=== PATIENT | male | born 1975 | race Caucasian/White ===

== ENCOUNTER 2017-01-05 20:35 | Emergency (ER) | payer MEDICAID ==
[~2017-01-05] VITALS: Ht 172.7 cm; Wt 69.1 kg
[~2017-01-05 20:35] MED LIST: GABA300C10 PO; SERT100T PO
[2017-01-05] MEDS ORDERED: LIDOCAINE 1%, 20ML ONE (21:58)
[2017-01-05] MEDS ORDERED: LIDOCAINE 1%, 20ML SQ ONE (22:00)
[2017-01-05 23:06] VITALS: BP 114/70
== END 2017-01-05 23:08 | disposition home or self-care (01) ==
LOC: ED 23:00
DX: L02.413 Cutaneous abscess of right upper limb (principal); S90.421A Blister (nonthermal), right great toe, initial encounter; B35.3 Tinea pedis; F19.10 Other psychoactive substance abuse, uncomplicated; X58.XXXA Exposure to other specified factors, initial encounter; Y93.89 Activity, other specified; Y99.8 Other external cause status; Y92.89 Other specified places as the place of occurrence of the external cause
CPT/HCPCS: 10060

== ENCOUNTER 2017-01-07 19:54 | Emergency (ER) | payer MEDICAID ==
[~2017-01-07] VITALS: Ht 172.7 cm; Wt 71.3 kg
[2017-01-07 19:55] VITALS: BP 120/74
[2017-01-07] MEDS ORDERED: CEFAZOLIN 1,000 MG ONE (20:19)
[2017-01-07] MEDS ORDERED: DIPH,PERTUSS(ACELL),TET VAC/PF 0.5 ML IM-VACC ONE ×2 (20:20→20:30)
[2017-01-07] MEDS ORDERED: LIDOCAINE 1%, 10ML INFIL ONE (20:30)
[2017-01-07] MEDS ORDERED: CEFAZOLIN 1,000 MG IM ONE (20:30)
== END 2017-01-07 21:19 | disposition home or self-care (01) ==
LOC: ED 20:00
DX: L02.413 Cutaneous abscess of right upper limb (principal)
CPT/HCPCS: 90471; 90715; 96372; 99284; J0690

== ENCOUNTER 2019-01-08 14:02 | Observation (INO) | payer MEDICAID ==
[~2019-01-08] VITALS: Ht 172.7 cm; Wt 80.0 kg
[2019-01-09 08:21] VITALS: BP 102/74
== END 2019-01-09 12:30 ==
LOC: ED 16:52 → EDIP 01-09 01:38 → INTOOBSV 01-09 01:38 → 2N 01-09 09:50
PROVIDERS: ADMIT Internal Medicine; ATTEND Internal Medicine
DX: R45.851 Suicidal ideations (principal); N17.9 Acute kidney failure, unspecified; M54.12 Radiculopathy, cervical region; F41.8 Other specified anxiety disorders; F19.10 Other psychoactive substance abuse, uncomplicated; F17.210 Nicotine dependence, cigarettes, uncomplicated; Z88.8 Allergy status to other drugs, medicaments and biological substances
CPT/HCPCS: 36415; 74022; 80048; 80053; 80307; 81001; 82550; 83690; 85025; 87086; 93005; 96372; 99285; G0378; J3486; J7030; 96360; 96361

== ENCOUNTER 2019-04-23 16:05 | Emergency (ER) | payer MEDICAID ==
[~2019-04-23] VITALS: Ht 172.7 cm; Wt 80.6 kg
[~2019-04-23 16:05] MED LIST changes: +CYCL-259 PO; +OXYC10SY PO; +QUET200T4 PO; +SERT25TA3 PO
[2019-04-23 16:45] LABS: BASOPHILS # (AUTO) 0.02 x10^3/uL (0-0.1); BASOPHILS % (AUTO) 0 % (0-1); EOSINOPHILS # (AUTO) 0.22 x10^3/uL (0-0.4); EOSINOPHILS % (AUTO) 3 % (1-7); LYMPHOCYTES # (AUTO) 1.28 x10^3/uL (1-3.4); LYMPHOCYTES % (AUTO) 18 % (22-44); MD NO; MEAN CORPUSCULAR HEMOGLOBIN 31.6 pg (27.5-34.5); MEAN CORPUSCULAR HGB CONC 33.9 g/dL (33.2-36.2); MEAN CORPUSCULAR VOLUME 93.3 fL (81-97); MEAN PLATELET VOLUME 6.8 fL (7.4-10.4); MONOCYTES % (AUTO) 7 % (2-9); NEUTROPHILS # (AUTO) 5.14 x10^3/uL (1.8-6.8); NEUTROPHILS % (AUTO) 72 % (42-75); PLATELET COUNT 281 x10^3/uL (130-400); RED BLOOD COUNT 4.98 x10^6/uL (4.38-5.82); RED CELL DISTRIBUTION WIDTH 13.5 % (9.4-14.8)
[2019-04-23 16:55] LABS: ALBUMIN 3.3 g/dL (3.4-5.0); ANION GAP 8 mmol/L (5-15); CALCIUM 8.9 mg/dL (8.5-10.1); CHLORIDE 107 mmol/L (98-107); CREATININE 1.05 mg/dL (0.7-1.3); SALICYLATE LEVEL < 1.7 mg/dL (2.8-20.0)
--- NOTE | 2019-04-23 16:56 | NUR ---
PT SITTING IN CHAIR ON WALL, NAD OBSERVED, NEAR RN STATION
--- NOTE | 2019-04-23 17:17 | NUR ---
FROM WALL TO ROOM AT THIS TIME
--- NOTE | 2019-04-23 17:27 | NUR ---
PT UNDRESSED COMPLETELY, 3 BAGS OF BELONGINGS LABLED AND PLACED IN LOCKER. PT CALM AND COOPERATIVE WITH STAFF REQUESTS. BLANKETS PROVIDED FOR COMFORT. URINE COLLECTED AND WALKED DOWN TO LAB. LABS COLLECTED WHILE PT WAS SITTING ON WALL. PT REQUESTING FOOD. DIET TRAY TO BE ORDERED. AWAITING MD ASSESSMENT AND FURTHER ORDERS AT THIS TIME
--- NOTE | 2019-04-23 17:45 | NUR ---
THIS IS A 43YO MALE THAT COMES IN W/ C/O SI WANTING TO OVERDOSE. PT REPORTS NOT TAKING PSYCH MEDS SINCE WEDNESDAY WHEN HE WAS AT [place] FOR [place]. PT REPORTS TWO WEEKS AGO ATTEMPTING TO OVERDOSE AND BEING BROUGHT TO HOSPITAL AND TRANSFERED TO [place] FOR A WEEK AND A HALF. JUANCHO PT STATES HE WAS ON THE WAY TO GET THINGS TO OVER DOSE AND RAN INTO A FRIEND THAT TOLD HIM TO GO TO THE HOSPITAL. PT KEEPS STATING "I'M NOT SAFE OUT THERE." AT THIS TIME PT RESTING ON [employer] WATCHING TV CALL LIGHT WITHIN REACH.
[2019-04-23 17:51] LABS: AMPHETAMINE SCREEN, URINE Negative (Negative); BARBITURATE SCREEN, URINE Negative (Negative); BENZODIAZEPINE SCREEN, URINE Negative (Negative); CANNABINOID SCREEN, URINE Negative (Negative); COCAINE SCREEN, URINE Negative (Negative); METHADONE SCREEN, URINE Negative (Negative); OPIATE SCREEN, URINE Negative (Negative)
--- NOTE | 2019-04-23 18:05 | NUR ---
THROUGHPUT: TELEPSYCH PGD.
--- NOTE | 2019-04-23 18:21 | NUR ---
PT RESTING ON [employer]. CALL LIGHT WITHIN REACH.
--- NOTE | 2019-04-23 18:40 | NUR ---
F/U CALL PLACED TO DIETARY TON DELAY IN RECEIVING TRAY, STATES WILL SEND ONE NOW
--- NOTE | 2019-04-23 18:55 | NUR ---
DIET TRAY DELIVERED TO PT, PT CURRENTLY EATING IN ROOM NOW. NADN. ALL NEEDS MET AT TH TIME
--- NOTE | 2019-04-23 19:26 | NUR ---
PT SLEEPING IN BED, NADN. FINISHED DIET TRAY. STILL AWAITING TELEPSYCH FOR DISPO. FLUIDS AT BEDSIDE. SITTER IN CONTI FOR CONTINUOUS MONITORING.
--- NOTE | 2019-04-23 19:56 | NUR ---
PT RESTING ON GURNEY EYES CLOSED. CALL LIGHT WITHIN REACH.
--- NOTE | 2019-04-23 20:11 | NUR ---
PT RESTING ON [facility]. SITTER IN HALLWAY FOR MONITORING AND SAFETY.
--- NOTE | 2019-04-23 20:50 | NUR ---
TELEPSYCH CESAR IN ROOM AT THIS TIME, AWAITING CONSULT AND DISPO
--- NOTE | 2019-04-23 21:32 | NUR ---
REPORT GIVEN TO SOC.
--- NOTE | 2019-04-23 22:24 | NUR ---
PT PLACED ON HOLD PER SOC. PT PROVIDED WITH SNACKS PER REQUEST SITTER REMAINS IN HALLWAY FOR SAFETY AND MONITORING
--- NOTE | 2019-04-23 22:30 | NUR ---
REPORT GIVEN TO DASH LEONE.
--- NOTE | 2019-04-23 22:41 | NUR ---
RECIEVED REPORT FROM LORI. ASSUMED CARE OF PT.
--- NOTE | 2019-04-23 22:49 | NUR ---
PT STATES THAT HE IS NOT SAFE TO LEAVE THE HOSPITAL, BUT HE CONTRACTS FOR SAFETY WHILE HE IS HERE. HE REPORTS THAT HE HAS STRUGGLED WITH DEPRESSION AND SI FOR YEARS. PT ALSO REPORTS THAT HE LEFT [facility] WITH NO MEDS.
--- NOTE | 2019-04-24 01:30 | NUR ---
PT SLEEPING RESP EVEN AND UNLABORED. SITTER IN CONTI
--- NOTE | 2019-04-24 02:10 | NUR ---
Note ayaka in EDM - 04/24/19 at 0346 by AMARI REVIEWED DISCHARGE INSTRUCTIONS WITH PT AND GF. GAVE PT LOST AND FOUND CLOTHING AND SHOES. PT IS A&OX4, V/S WNL, AFEBRILE. PT ESCORTED TO DISCHARGE.
--- NOTE | 2019-04-24 03:44 | NUR ---
PT RESTING. WOKE UP AND THEN RETURNED TO SLEEP. SITTER IN CONTI.
--- NOTE | 2019-04-24 05:57 | NUR ---
PT SLEEPING. SITTER IN CONTI
--- NOTE | 2019-04-24 07:08 | NUR ---
Received report from SULEMA Jett. Assumed care of pt.
--- NOTE | 2019-04-24 07:50 | NUR ---
PACKET FAXED TO [facility], [facility] AND [facility]
[2019-04-24 08:11] VITALS: BP 109/64
--- NOTE | 2019-04-24 08:27 | NUR ---
Pt ate breakfast and now resting comfortably. No complaints. Sitter in place.
--- NOTE | 2019-04-24 08:36 | NUR ---
Nurse to nurse report given to [facility].
--- NOTE | 2019-04-24 09:30 | NUR ---
Pt sleeping, quiet and comfortable. No complaints. Sitter in place.
--- NOTE | 2019-04-24 10:30 | NUR ---
Pt sleeping, not in distress. No complaints. Sitter in place.
--- NOTE | 2019-04-24 11:28 | NUR ---
Pt sleeping quietly in bed. No distress. Awaiting transfer to [facility]. No complaints, sitter outside door.
--- NOTE | 2019-04-24 12:18 | NUR ---
Pt ate lunch and is now resting comfortably in bed. Sitter by the door.
--- NOTE | 2019-04-24 13:14 | NUR ---
Pt was discharged to [facility] via [facility] for pt's next level of care. All belongings returned to pt. Pt was escorted out without incident.
== END 2019-04-24 13:06 ==
LOC: ED 18:10
DX: R45.851 Suicidal ideations (principal); F41.9 Anxiety disorder, unspecified; F31.9 Bipolar disorder, unspecified
CPT/HCPCS: 36415; 80048; 80307; 82040; 85025; 99285

== ENCOUNTER 2019-06-24 19:30 | Emergency (ER) | payer BC, MEDICAID ==
[~2019-06-24] VITALS: Ht 172.7 cm; Wt 75.0 kg
--- NOTE | 2019-06-24 20:04 | NUR ---
PT AWARE A UA IS NEEDED. PT DECLINING TO PROVIDE SAMPLE AT THIS TIME.
[2019-06-24] MEDS ORDERED: VRAYLAR PO (20:13)
[2019-06-24 20:17] LABS: BASOPHILS # (AUTO) 0.05 x10^3/uL (0-0.1); BASOPHILS % (AUTO) 1 % (0-1); EOSINOPHILS # (AUTO) 0.09 x10^3/uL (0-0.4); EOSINOPHILS % (AUTO) 1 % (1-7); LYMPHOCYTES # (AUTO) 1.12 x10^3/uL (1-3.4); LYMPHOCYTES % (AUTO) 12 % (22-44); MD NO; MEAN CORPUSCULAR HEMOGLOBIN 31.8 pg (27.5-34.5); MEAN CORPUSCULAR HGB CONC 33.9 g/dL (33.2-36.2); MEAN CORPUSCULAR VOLUME 93.7 fL (81-97); MEAN PLATELET VOLUME 7.2 fL (7.4-10.4); MONOCYTES # (AUTO) 0.73 x10^3/uL (0.2-0.8); MONOCYTES % (AUTO) 8 % (2-9); NEUTROPHILS # (AUTO) 7.27 x10^3/uL (1.8-6.8); NEUTROPHILS % (AUTO) 79 % (42-75); PLATELET COUNT 248 x10^3/uL (130-400); RED BLOOD COUNT 5.04 x10^6/uL (4.38-5.82); RED CELL DISTRIBUTION WIDTH 14.1 % (9.4-14.8)
[2019-06-24 20:25] LABS: ALBUMIN 3.2 g/dL (3.4-5.0); ANION GAP 5 mmol/L (5-15); CALCIUM 8.9 mg/dL (8.5-10.1); CHLORIDE 106 mmol/L (98-107); CREATININE 0.99 mg/dL (0.7-1.3); SALICYLATE LEVEL 1.8 mg/dL (2.8-20.0)
--- NOTE | 2019-06-24 20:26 | NUR ---
PT PROVIDED WITH BLANKET PER REQUEST.
--- NOTE | 2019-06-24 21:16 | NUR ---
3E RN AT BEDSIDE ASSESSING PT
--- NOTE | 2019-06-24 21:22 | NUR ---
UA OBTAINED AND TUBED TO LAB
--- NOTE | 2019-06-24 21:23 | NUR ---
3E RN HAS FINISHED HER ASSESSMENT. SHE WILL SPEAK WITH HER PHYSICIAN AND LET US KNOW ABOUT ADMISSION OR DENIAL.
--- NOTE | 2019-06-24 21:44 | NUR ---
3E PSYCHIATRIST IS DECLINING THE PT AT THIS TIME AND REQUESTS WE SEND REFERRAL PACKET TO OTHER FACILITIES. THEY WILL HOWEVER RECONSIDER IF PT IS DECLINED BY OTHER FACILITES.
--- NOTE | 2019-06-24 21:45 | NUR ---
PT WAS DECLINED BY VERA MARCUS FROM [facility] CONVERSATION WITH THEIR STAFF
[2019-06-24 22:21] LABS: AMPHETAMINE SCREEN, URINE Negative (Negative); BARBITURATE SCREEN, URINE Negative (Negative); BENZODIAZEPINE SCREEN, URINE Positive (Negative); CANNABINOID SCREEN, URINE Positive (Negative); COCAINE SCREEN, URINE Negative (Negative); METHADONE SCREEN, URINE Negative (Negative); OPIATE SCREEN, URINE Negative (Negative)
--- NOTE | 2019-06-24 22:36 | NUR ---
TP RN: PT DENIED BY [facility].
--- NOTE | 2019-06-24 23:00 | NUR ---
TP RN: PACKET FAXED TO [facility], [place]. PT DENIED BY [facility].
--- NOTE | 2019-06-24 23:16 | NUR ---
[facility] CALLED BACK AND STATES THEY ARE UNABLE TO CONFIRM [employer] INSURANCE. OUR REG WAS CALLED AND THEY WILL WORK ON CONFIRMING HE PTS INSURANCE.
--- NOTE | 2019-06-24 23:23 | NUR ---
REGISTRATION WAS ABLE TO UPDATE PTS INSURANCE SUCCESSFULLY. UPDATED INFO FAXED TO [facility].
--- NOTE | 2019-06-24 23:45 | NUR ---
TP RN: PT DECLINED BY [facility]
--- NOTE | 2019-06-24 23:52 | NUR ---
DAVID RN: SPOKE WITH SULEMA STOCKTON ON TO TAKE PATIENT.
[2019-06-25 00:54] VITALS: BP 129/79
--- NOTE | 2019-06-25 00:55 | NUR ---
REPORT CALLED TO 3E SULEMA CALVO
[2019-06-25 10:22] LABS: MICROSCOPIC NOT IND
[2019-06-25 10:27] LABS: CULTURE INDICATED? NO
== END 2019-06-25 01:01 | disposition other institution (70) ==
LOC: MERGE 19:30 → ED 20:55
DX: R45.851 Suicidal ideations (principal); F17.200 Nicotine dependence, unspecified, uncomplicated; F31.9 Bipolar disorder, unspecified
CPT/HCPCS: 36415; 80048; 80307; 81003; 82040; 85025; 99284

== ENCOUNTER 2019-06-25 00:42 | Inpatient (IN) | payer MEDICAID ==
[~2019-06-25] VITALS: Ht 172.7 cm; Wt 78.5 kg
[~2019-06-25 00:42] MED LIST changes: +VRAYLAR PO
[2019-06-25] MEDS ORDERED: BISACODYL 10 MG SUPP PR PRN (01:30)
[2019-06-25] MEDS ORDERED: DOCUSATE 100 MG CAPSULE PO PRN (01:30)
[2019-06-25] MEDS ORDERED: ACETAMINOPHEN 325 MG TABLET PO PRN (01:30)
[2019-06-25] MEDS ORDERED: ONDANSETRON ODT 4 MG PO PRN (01:30)
[2019-06-25] MEDS ORDERED: POLYETHYLENE GLYCOL 17 GM PACKET PO PRN (01:30)
[2019-06-25 01:44] VITALS: BP 126/86
[2019-06-25 07:06] LABS: ALBUMIN 3.1 g/dL (3.4-5.0); ANION GAP 4 mmol/L (5-15); CALCIUM 8.9 mg/dL (8.5-10.1); CHLORIDE 108 mmol/L (98-107)
[2019-06-25 07:15] VITALS: BP 104/73
[2019-06-25 07:32] LABS: ALANINE AMINOTRANSFERASE 32 U/L (12-78); ALKALINE PHOSPHATASE 51 U/L (45-117); BILIRUBIN,TOTAL 0.2 mg/dL (0.2-1.0); CHOLESTEROL, TOTAL 140 mg/dL (140-239); CREATININE 0.89 mg/dL (0.7-1.3); FREE T4 (FREE THYROXINE) 0.87 ng/dL (0.76-1.46); HDL CHOL % 33 % (26-37); HDL CHOLESTEROL (DIRECT) 46 mg/dL (40-60); LDL CHOLESTEROL,CALCULATED 69 mg/dL (54-169); LDL/HDL RATIO 1.5 (0.5-3.0); TRIGLYCERIDES 126 mg/dL (50-200); VLDL CHOLESTEROL 25 mg/dL (0-25)
[2019-06-25] MEDS: NICOTINE 21 MG/24 HR PATCH.TD24 TD SCH (08:23)
[2019-06-25] MEDS ORDERED: HYDROmorphone 2MG TABLET PO PRN (09:30)
[2019-06-25 13:46] LABS: MICROSCOPIC AUTO
[2019-06-25 13:47] LABS: CULTURE INDICATED? NO
[2019-06-25] MEDS ORDERED: LIDODERM 5% PATCH TD ONE (14:00)
[2019-06-25] MEDS: ACETAMINOPHEN 325 MG TABLET PO SCH ×2 (14:08→20:02)
[2019-06-25] MEDS ORDERED: GABAPENTIN 400 MG CAPSULE PO SCH (16:00)
[2019-06-25 19:43] VITALS: BP 131/88
[2019-06-25] MEDS: TRAZODONE 100MG TABLET PO SCH (20:16)
[2019-06-26] MEDS: ACETAMINOPHEN 325 MG TABLET PO SCH ×4 (01:30→20:32)
[2019-06-26 07:26] VITALS: BP 116/78
[2019-06-26] MEDS: NICOTINE 21 MG/24 HR PATCH.TD24 TD SCH (08:13)
[2019-06-26] MEDS: IBUPROFEN 200 MG TABLET PO PRN ×3 (08:13→20:33)
[2019-06-26 19:52] VITALS: BP 106/69
[2019-06-26] MEDS: TRAZODONE 100MG TABLET PO SCH (20:32)
[2019-06-27] MEDS: ACETAMINOPHEN 325 MG TABLET PO SCH ×4 (01:30→19:45)
[2019-06-27 07:35] VITALS: BP 102/65
[2019-06-27] MEDS: NICOTINE 21 MG/24 HR PATCH.TD24 TD SCH (08:13)
[2019-06-27] MEDS: IBUPROFEN 200 MG TABLET PO PRN (11:27)
[2019-06-27 19:15] VITALS: BP 117/77
[2019-06-27] MEDS: TRAZODONE 100MG TABLET PO SCH (19:44)
[2019-06-28] MEDS: ACETAMINOPHEN 325 MG TABLET PO SCH ×4 (01:30→19:50)
[2019-06-28 07:02] VITALS: BP 122/80
[2019-06-28] MEDS: NICOTINE 21 MG/24 HR PATCH.TD24 TD SCH (08:07)
[2019-06-28] MEDS: IBUPROFEN 200 MG TABLET PO PRN ×2 (08:19→17:41)
[2019-06-28] MEDS ORDERED: VRAYLAR PO (17:12)
[2019-06-28] MEDS ORDERED: TRAZ-137 PO (17:12)
[2019-06-28] MEDS ORDERED: NICO-487 TD (17:12)
[2019-06-28 19:15] VITALS: BP 117/72
[2019-06-28] MEDS: TRAZODONE 100MG TABLET PO SCH (19:50)
[2019-06-29] MEDS: ACETAMINOPHEN 325 MG TABLET PO SCH ×2 (01:30→07:35)
[2019-06-29 07:40] VITALS: BP 105/71
== END 2019-06-29 07:40 | disposition home or self-care (01) | DRG 885 ==
LOC: 3E 01:04
PROVIDERS: ADMIT Psychiatry & Neurology Psychosomatic Medicine; ATTEND Psychiatry & Neurology Psychosomatic Medicine
DX: F31.30 Bipolar disorder, current episode depressed, mild or moderate severity, unspecified (principal); R45.851 Suicidal ideations; F15.20 Other stimulant dependence, uncomplicated; F10.20 Alcohol dependence, uncomplicated; F43.10 Post-traumatic stress disorder, unspecified; G47.00 Insomnia, unspecified; F19.10 Other psychoactive substance abuse, uncomplicated; G89.29 Other chronic pain; Z72.0 Tobacco use; Z79.899 Other long term (current) drug therapy; Z80.3 Family history of malignant neoplasm of breast; Z80.7 Family history of other malignant neoplasms of lymphoid, hematopoietic and related tissues; Z80.8 Family history of malignant neoplasm of other organs or systems; Z91.5 Personal history of self-harm; Z71.6 Tobacco abuse counseling
CPT/HCPCS: 36415; 71045; 80053; 80061; 81001; 82607; 84439; 84443; 93005

== ENCOUNTER 2019-11-14 16:27 | Inpatient (IN) | payer MEDICAID ==
[~2019-11-14] VITALS: Ht 172.7 cm; Wt 77.3 kg
[~2019-11-14 16:27] MED LIST changes: +HYDR-3240 PO; +IBUP-1222 PO; +LACT1CAP35 PO; +LORA-446 PO; +NICO-487 TD; +NONE PER PT; +TRAZ-175 PO; +VANC1PLA9 IVPB
--- NOTE | 2019-11-14 16:56 | NUR ---
PT STATED "I LEFT A SNF A FEW DAYS AGO. 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 I LEFT [facility] BECAUSE I HAD SOME THINGS I NEEDED TO TAKE CARE OF." PT ALSO ADMITS TO USING METH A FEW DAYS AGO. PT DENIES FEVERS OR ANY OTHER SYMPTOMS.
[2019-11-14] MEDS ORDERED: VANCOMYCIN 1,900 MG in SODIUM CHLORIDE 0.9% 250 ML IV ONE (17:30)
[2019-11-14] MEDS ORDERED: VANCOMYCIN PER PHARMACY MC ONE (17:30)
[2019-11-14 17:36] LABS: BASOPHILS # (AUTO) 0.05 x10^3/uL (0-0.1); BASOPHILS % (AUTO) 1 % (0-1); EOSINOPHILS # (AUTO) 0.32 x10^3/uL (0-0.4); EOSINOPHILS % (AUTO) 7 % (1-7); LYMPHOCYTES # (AUTO) 1.26 x10^3/uL (1-3.4); LYMPHOCYTES % (AUTO) 26 % (22-44); MD NO; MEAN CORPUSCULAR HEMOGLOBIN 31.6 pg (27.5-34.5); MEAN CORPUSCULAR HGB CONC 34.2 g/dL (33.2-36.2); MEAN CORPUSCULAR VOLUME 92.4 fL (81-97); MEAN PLATELET VOLUME 7.1 fL (7.4-10.4); MONOCYTES # (AUTO) 0.42 x10^3/uL (0.2-0.8); MONOCYTES % (AUTO) 9 % (2-9); NEUTROPHILS # (AUTO) 2.87 x10^3/uL (1.8-6.8); NEUTROPHILS % (AUTO) 59 % (42-75); PLATELET COUNT 352 x10^3/uL (130-400); RED CELL DISTRIBUTION WIDTH 14.3 % (9.4-14.8)
[2019-11-14 17:46] LABS: ANION GAP 3 mmol/L (5-15); CALCIUM 8.7 mg/dL (8.5-10.1); CHLORIDE 109 mmol/L (98-107); CREATININE 0.97 mg/dL (0.7-1.3)
[2019-11-14 17:47] LABS: ALANINE AMINOTRANSFERASE 26 U/L (12-78); ALBUMIN 3.3 g/dL (3.4-5.0)
[2019-11-14 17:49] LABS: ALKALINE PHOSPHATASE 65 U/L (45-117); BILIRUBIN,TOTAL 0.2 mg/dL (0.2-1.0); TOTAL PROTEIN 7.4 g/dL (6.4-8.2)
--- NOTE | 2019-11-14 18:03 | NUR ---
PT RESTING IN [facility]. IV ABX INFUSING
[2019-11-14] MEDS ORDERED: LORazepam 1MG TABLET PO PRN (19:30)
[2019-11-14] MEDS ORDERED: ACETAMINOPHEN 325 MG TABLET PO PRN (19:30)
[2019-11-14] MEDS ORDERED: BISACODYL 10 MG SUPP PR PRN (19:30)
[2019-11-14] MEDS ORDERED: ONDANSETRON ODT 4 MG PO PRN (19:30)
[2019-11-14] MEDS ORDERED: POLYETHYLENE GLYCOL 17 GM PACKET PO PRN (19:30)
[2019-11-14] MEDS ORDERED: IBUPROFEN 600 MG TABLET PO PRN (19:30)
[2019-11-14] MEDS: HEPARIN 5,000 UNITS/ML, 1ML SQ SCH (19:30)
--- NOTE | 2019-11-14 20:08 | NUR ---
PT RESTING IN [facility]. CATRACHITA SHELDON.
[2019-11-14] MEDS: NICOTINE 21 MG/24 HR PATCH.TD24 TD SCH (20:45)
[2019-11-14] MEDS ORDERED: DIPHENHYDRAMINE 50 MG/ML, 1ML ONE (20:50)
[2019-11-14] MEDS ORDERED: LORazepam 1MG TABLET ONE (20:52)
[2019-11-14] MEDS ORDERED: DIPHENHYDRAMINE 50 MG/ML, 1ML IVPush ONE (21:00)
--- NOTE | 2019-11-14 21:32 | NUR ---
PT BECAME INCREASINGLY AGITATED. WAS SWEARING AND THROWING THINGS AROUND THE ROOM. PT WAS MEDICATED PER MAR.
[2019-11-14] MEDS ORDERED: METHOCARBAMOL 500 MG TABLET ONE (21:46)
[2019-11-14] MEDS: METHOCARBAMOL 500 MG TABLET PO PRN (21:49)
[2019-11-14] MEDS: LACTOBACILLUS CHEW TABLET PO SCH (21:50)
[2019-11-14] MEDS: HYDROcodone/APAP 5/325 TABLET PO PRN (21:50)
[2019-11-14] MEDS ORDERED: PHARMACOKINETIC CONSULTATION MC ONE (22:00)
[2019-11-14] MEDS ORDERED: PHARMACOKINETIC MONITORING MC PRN (22:00)
[2019-11-14] MEDS ORDERED: VANCOMYCIN PER PHARMACY MC PRN (22:00)
[2019-11-14] MEDS: SODIUM CHLORIDE FLUSH 10ML SYR IVF SCH (22:25)
[2019-11-14 22:27] VITALS: BP 90/52
[2019-11-15 02:22] VITALS: BP 96/53
[2019-11-15] MEDS: HEPARIN 5,000 UNITS/ML, 1ML SQ SCH ×3 (03:30→20:08)
[2019-11-15] MEDS: METHOCARBAMOL 500 MG TABLET PO PRN ×2 (05:53→18:17)
[2019-11-15] MEDS: HYDROcodone/APAP 5/325 TABLET PO PRN ×2 (05:53→18:17)
[2019-11-15] MEDS: VANCOMYCIN 1,400 MG in SODIUM CHLORIDE 0.9% 250 ML IV SCH ×2 (05:53→17:47)
[2019-11-15 07:12] VITALS: BP 100/61
[2019-11-15] MEDS: SENNA/DOCUSATE TABLET PO SCH (08:19)
[2019-11-15] MEDS: SODIUM CHLORIDE FLUSH 10ML SYR IVF SCH ×2 (08:19→20:08)
[2019-11-15] MEDS: LACTOBACILLUS CHEW TABLET PO SCH ×2 (08:19→20:08)
[2019-11-15 19:22] VITALS: BP 98/58
[2019-11-15] MEDS: NICOTINE 21 MG/24 HR PATCH.TD24 TD SCH (20:08)
[2019-11-15] MEDS ORDERED: DIPHENHYDRAMINE 50 MG/ML, 1ML IVPush ONE (20:30)
[2019-11-16] MEDS: HYDROcodone/APAP 5/325 TABLET PO PRN ×3 (00:18→18:16)
[2019-11-16 02:40] VITALS: BP 101/63
[2019-11-16] MEDS: HEPARIN 5,000 UNITS/ML, 1ML SQ SCH ×3 (03:40→19:30)
[2019-11-16] MEDS: VANCOMYCIN 1,400 MG in SODIUM CHLORIDE 0.9% 250 ML IV SCH ×2 (06:13→18:17)
[2019-11-16] MEDS: METHOCARBAMOL 500 MG TABLET PO PRN ×2 (06:14→17:35)
[2019-11-16 06:18] LABS: BASOPHILS # (AUTO) 0.01 x10^3/uL (0-0.1); BASOPHILS % (AUTO) 0 % (0-1); EOSINOPHILS # (AUTO) 0.63 x10^3/uL (0-0.4); EOSINOPHILS % (AUTO) 12 % (1-7); LYMPHOCYTES # (AUTO) 0.96 x10^3/uL (1-3.4); LYMPHOCYTES % (AUTO) 18 % (22-44); MD NO; MEAN CORPUSCULAR HEMOGLOBIN 31.3 pg (27.5-34.5); MEAN CORPUSCULAR HGB CONC 33.5 g/dL (33.2-36.2); MEAN CORPUSCULAR VOLUME 93.4 fL (81-97); MEAN PLATELET VOLUME 7.1 fL (7.4-10.4); MONOCYTES # (AUTO) 0.27 x10^3/uL (0.2-0.8); MONOCYTES % (AUTO) 5 % (2-9); NEUTROPHILS # (AUTO) 3.52 x10^3/uL (1.8-6.8); NEUTROPHILS % (AUTO) 65 % (42-75); PLATELET COUNT 287 x10^3/uL (130-400); RED BLOOD COUNT 4.12 x10^6/uL (4.38-5.82); RED CELL DISTRIBUTION WIDTH 14.4 % (9.4-14.8)
[2019-11-16 06:24] LABS: ANION GAP 5 mmol/L (5-15); CALCIUM 8.3 mg/dL (8.5-10.1); CHLORIDE 109 mmol/L (98-107); CREATININE 0.93 mg/dL (0.7-1.3)
[2019-11-16 07:57] VITALS: BP 94/53
[2019-11-16] MEDS: SENNA/DOCUSATE TABLET PO SCH (09:00)
[2019-11-16] MEDS: SODIUM CHLORIDE FLUSH 10ML SYR IVF SCH ×2 (09:00→21:00)
[2019-11-16] MEDS: LACTOBACILLUS CHEW TABLET PO SCH ×2 (09:30→20:27)
[2019-11-16 13:59] VITALS: BP 101/62
[2019-11-16] MEDS: DIPHENHYDRAMINE 25 MG CAPSULE PO PRN (17:34)
[2019-11-16 19:17] VITALS: BP 121/80
[2019-11-16] MEDS: NICOTINE 21 MG/24 HR PATCH.TD24 TD SCH (19:30)
[2019-11-17 01:06] VITALS: BP 106/55
[2019-11-17] MEDS: HEPARIN 5,000 UNITS/ML, 1ML SQ SCH ×2 (03:30→11:16)
[2019-11-17] MEDS: DIPHENHYDRAMINE 25 MG CAPSULE PO PRN (05:04)
[2019-11-17 06:09] LABS: ANION GAP 6 mmol/L (5-15); CALCIUM 9.2 mg/dL (8.5-10.1); CHLORIDE 105 mmol/L (98-107)
[2019-11-17 06:12] LABS: CREATININE 0.89 mg/dL (0.7-1.3); VANCOMYCIN,TROUGH 13.3 mcg/mL (5.0-10.0)
[2019-11-17 06:13] LABS: BASOPHILS # (AUTO) 0.02 x10^3/uL (0-0.1); BASOPHILS % (AUTO) 0 % (0-1); EOSINOPHILS # (AUTO) 0.83 x10^3/uL (0-0.4); EOSINOPHILS % (AUTO) 16 % (1-7); LYMPHOCYTES # (AUTO) 1.09 x10^3/uL (1-3.4); LYMPHOCYTES % (AUTO) 21 % (22-44); MD NO; MEAN CORPUSCULAR HEMOGLOBIN 31.4 pg (27.5-34.5); MEAN CORPUSCULAR HGB CONC 33.9 g/dL (33.2-36.2); MEAN CORPUSCULAR VOLUME 92.8 fL (81-97); MEAN PLATELET VOLUME 6.9 fL (7.4-10.4); MONOCYTES # (AUTO) 0.34 x10^3/uL (0.2-0.8); MONOCYTES % (AUTO) 7 % (2-9); NEUTROPHILS # (AUTO) 2.97 x10^3/uL (1.8-6.8); NEUTROPHILS % (AUTO) 57 % (42-75); PLATELET COUNT 326 x10^3/uL (130-400); RED BLOOD COUNT 4.69 x10^6/uL (4.38-5.82); RED CELL DISTRIBUTION WIDTH 13.9 % (9.4-14.8)
[2019-11-17] MEDS: VANCOMYCIN 1,400 MG in SODIUM CHLORIDE 0.9% 250 ML IV SCH (06:21)
[2019-11-17 06:54] VITALS: BP 108/74
[2019-11-17] MEDS: LACTOBACILLUS CHEW TABLET PO SCH ×2 (08:54→08:57)
[2019-11-17] MEDS: SENNA/DOCUSATE TABLET PO SCH ×2 (08:54→08:58)
[2019-11-17] MEDS: SODIUM CHLORIDE FLUSH 10ML SYR IVF SCH (08:55)
[2019-11-17] MEDS ORDERED: METH500T7 PO (11:41)
[2019-11-17] MEDS ORDERED: SENN-193 PO (11:41)
[2019-11-17 13:03] VITALS: BP 121/59
== END 2019-11-17 15:17 | DRG 541 ==
LOC: ED 17:26 → EDIP 18:37 → 3N 21:30
PROVIDERS: ADMIT Family Medicine; ATTEND Hospitalist
DX: M86.8X5 Other osteomyelitis, thigh (principal); B95.62 Methicillin resistant Staphylococcus aureus infection as the cause of diseases classified elsewhere; F15.10 Other stimulant abuse, uncomplicated; F17.210 Nicotine dependence, cigarettes, uncomplicated; F31.9 Bipolar disorder, unspecified; F41.1 Generalized anxiety disorder; F43.10 Post-traumatic stress disorder, unspecified; M54.12 Radiculopathy, cervical region; G89.29 Other chronic pain; Z80.7 Family history of other malignant neoplasms of lymphoid, hematopoietic and related tissues; Z86.14 Personal history of Methicillin resistant Staphylococcus aureus infection; Z79.899 Other long term (current) drug therapy
CPT/HCPCS: 36415; 80048; 80053; 80202; 85025; 87040; G0378; J3370; J1200; J7050; Q0163

== ENCOUNTER → 2019-11-24 | Outpatient (CLI) | payer MEDICAID ==
[~2019-11-24] MED LIST changes: +METH500T7 PO; +SENN-193 PO
== END | disposition home or self-care (01) ==
LOC: RAD 12:41
PROVIDERS: ATTEND Family Medicine
DX: M86.141 Other acute osteomyelitis, right hand (principal)
CPT/HCPCS: 36573; C1751

== ENCOUNTER 2020-05-03 12:26 | Emergency (ER) | payer MEDICAID ==
[~2020-05-03] VITALS: Ht 165.1 cm; Wt 78.3 kg
[2020-05-03 12:36] VITALS: BP 107/74
--- NOTE | 2020-05-03 12:49 | NUR ---
BREAK RN:PATIENT BROUGHT BACK FROM TRIAGE WITH SUICIDAL IDEATION. PATIENT STATES, " I WANT TO KILL MYSELF." PATIENT STATES HE WAS GOING TO "TRY AND OVERDOSE ON PILLS." PATIENT REPORTS FEELING SUICIDAL THE LAST 4 DAYS, PATIENT ENDORSES HISTORY OF SUICIDAL IDEATION. NO SIGNS OF ACUTE DISTRESS, ALL PATIENT BELONGINGS GATHERED AND LOCKED AWAY. SUICIDE PRECAUTIONS IN PLACE.
--- NOTE | 2020-05-03 13:30 | NUR ---
pt resting, no needs at this time
[2020-05-03 14:03] LABS: BASOPHILS % (AUTO) 1 % (0-1); EOSINOPHILS % (AUTO) 2 % (1-7); LYMPHOCYTES % (AUTO) 13 % (22-44); MEAN CORPUSCULAR HEMOGLOBIN 30.7 pg (27.5-34.5); MEAN CORPUSCULAR HGB CONC 33.8 g/dL (33.2-36.2); MEAN PLATELET VOLUME 7.1 fL (7.4-10.4); MONOCYTES % (AUTO) 8 % (2-9); NEUTROPHILS % (AUTO) 77 % (42-75); PLATELET COUNT 250 x10^3/uL (130-400); RED BLOOD COUNT 4.98 x10^6/uL (4.38-5.82); RED CELL DISTRIBUTION WIDTH 13.3 % (9.4-14.8)
[2020-05-03 14:06] LABS: MD NO
[2020-05-03 14:12] LABS: ANION GAP 5 mmol/L (5-15); CALCIUM 8.3 mg/dL (8.5-10.1); CHLORIDE 108 mmol/L (98-107); CREATININE 0.88 mg/dL (0.7-1.3)
[2020-05-03 14:13] LABS: ALANINE AMINOTRANSFERASE 20 U/L (12-78); ALBUMIN 3.2 g/dL (3.4-5.0)
[2020-05-03 14:16] LABS: SALICYLATE LEVEL < 1.7 mg/dL (2.8-20.0)
[2020-05-03 14:22] LABS: ALKALINE PHOSPHATASE 45 U/L (45-117); BILIRUBIN,TOTAL 0.2 mg/dL (0.2-1.0); TOTAL PROTEIN 6.8 g/dL (6.4-8.2)
--- NOTE | 2020-05-03 15:09 | NUR ---
covid swab sent to lab at [id number]
--- NOTE | 2020-05-03 15:47 | NUR ---
report to camilla, ready for transfer
[2020-05-03 16:06] LABS: AMPHETAMINE SCREEN, URINE Negative (Negative); BARBITURATE SCREEN, URINE Negative (Negative); BENZODIAZEPINE SCREEN, URINE Negative (Negative); CANNABINOID SCREEN, URINE Negative (Negative); COCAINE SCREEN, URINE Negative (Negative); METHADONE SCREEN, URINE Negative (Negative); OPIATE SCREEN, URINE Negative (Negative)
== END 2020-05-03 23:46 | disposition other institution (70) ==
LOC: ED 13:53
DX: F32.9 Major depressive disorder, single episode, unspecified (principal); Z20.818 Contact with and (suspected) exposure to other bacterial communicable diseases; R45.851 Suicidal ideations; R94.31 Abnormal electrocardiogram [ECG] [EKG]; F17.200 Nicotine dependence, unspecified, uncomplicated
CPT/HCPCS: 36415; 80053; 80307; 84443; 85025; 87635; 93005; 99285

== ENCOUNTER 2020-05-03 15:54 | Inpatient (IN) | payer MEDICAID ==
[~2020-05-03] VITALS: Ht 172.7 cm; Wt 74.2 kg
[2020-05-03 16:31] VITALS: BP 125/86
[2020-05-03] MEDS ORDERED: POLYETHYLENE GLYCOL 17 GM PACKET PO PRN (17:00)
[2020-05-03] MEDS ORDERED: DOCUSATE 100 MG CAPSULE PO PRN (17:00)
[2020-05-03] MEDS ORDERED: BISACODYL 10 MG SUPP PR PRN (17:00)
[2020-05-03] MEDS ORDERED: ACETAMINOPHEN 325 MG TABLET PO PRN (17:00)
[2020-05-03] MEDS ORDERED: ONDANSETRON ODT 4 MG PO PRN (17:00)
[2020-05-03] MEDS ORDERED: PLEASE ENTER HEIGHT AND WEIGHT MC SCH (17:00)
[2020-05-03] MEDS ORDERED: NICOTINE 14MG/24 HR PATCH.TD24 TD SCH (17:00)
[2020-05-03 17:20] LABS: MICROSCOPIC NOT IND
[2020-05-03 20:00] VITALS: BP 119/75
[2020-05-04 07:10] VITALS: BP 114/71
[2020-05-04 08:13] LABS: CHOL/HDL RATIO 2.8; FREE T4 (FREE THYROXINE) 0.83 ng/dL (0.76-1.46); LDL/HDL RATIO 1.4 (0.5-3.0)
[2020-05-04] MEDS: HYDROXYZINE PAMOATE 50MG CAP PO PRN (15:29)
[2020-05-04 19:30] VITALS: BP 100/60
[2020-05-05 06:43] VITALS: BP 101/65
[2020-05-05] MEDS ORDERED: LORazepam 0.5MG TABLET PO PRN (12:00)
[2020-05-05 19:15] VITALS: BP 105/68
[2020-05-05] MEDS: HYDROXYZINE PAMOATE 50MG CAP PO PRN (20:03)
[2020-05-06 07:00] VITALS: BP 102/67
== END 2020-05-06 13:40 | disposition home or self-care (01) | DRG 885 ==
LOC: 3E 16:24
PROVIDERS: ADMIT Psychiatry & Neurology Psychosomatic Medicine; ATTEND Psychiatry & Neurology Psychosomatic Medicine
DX: F31.30 Bipolar disorder, current episode depressed, mild or moderate severity, unspecified (principal); F15.20 Other stimulant dependence, uncomplicated; R45.851 Suicidal ideations; M86.9 Osteomyelitis, unspecified; F17.210 Nicotine dependence, cigarettes, uncomplicated; F43.10 Post-traumatic stress disorder, unspecified; G89.29 Other chronic pain; F10.10 Alcohol abuse, uncomplicated; M54.12 Radiculopathy, cervical region; Z59.0 Homelessness; Z80.7 Family history of other malignant neoplasms of lymphoid, hematopoietic and related tissues; Z91.14 Patient's other noncompliance with medication regimen; Z88.8 Allergy status to other drugs, medicaments and biological substances; Z79.899 Other long term (current) drug therapy
CPT/HCPCS: 36415; 71045; 80061; 81003; 84439; 84443

== ENCOUNTER 2020-07-12 09:10 | Emergency (ER) | payer MEDICAID ==
[~2020-07-12] VITALS: Ht 172.7 cm; Wt 79.8 kg
[~2020-07-12 09:10] MED LIST changes: +HYDR-1067 PO; -HYDR-3240 PO; -NICO-487 TD; +NICO-587 TD
--- NOTE | 2020-07-12 10:20 | NUR ---
PT PRESENTING TO ER WITH SUICIDAL THOUGHTS AND PLANS OF HANGING HIMSELF. PT STATES HE FELT LIKE THIS A FEW DAYS AGO AND ATTEMPTED SUICIDE BY TAKING PILLS, UNK QUANTITY AND TYPE. PT DID NOT SEEK HELP AT THAT TIME. PT STATES HE ALSO HAS USED METH IN THE LAST FEW DAYS, BUT NOTHING SINCE THEN. PT HAS A PSYCH HX AND HAS PRVIOUS SUICIDE ATTEMPTS. PTS BELONGINGS REMOVED AND PLACED IN LOCKR. ROOM SECURED. SITTER OUTSIDE ROOM IN VIEW.
[2020-07-12 10:23] VITALS: BP 134/63
--- NOTE | 2020-07-12 13:20 | NUR ---
PT RESTING ON ED BED WITH EYES CLOSED. EVEN RISE AND FLL OF CHEST NOTED. NAD. PT IN SECURED ROOM WITH SITTER OUTSIDE.
--- NOTE | 2020-07-12 13:54 | NUR ---
BREAK RN: ROSINA MICHAELS SWABBED AND SENT
[2020-07-12 14:03] LABS: AMPHETAMINE SCREEN, URINE Positive (Negative); BARBITURATE SCREEN, URINE Negative (Negative); BENZODIAZEPINE SCREEN, URINE Negative (Negative); CANNABINOID SCREEN, URINE Negative (Negative); COCAINE SCREEN, URINE Negative (Negative); METHADONE SCREEN, URINE Negative (Negative); OPIATE SCREEN, URINE Negative (Negative)
--- NOTE | 2020-07-12 14:52 | NUR ---
PTADVISED OF PLAN TO ADMIT TO [facility]. NAD. PT NEEDS MET AT THIS TIME.
--- NOTE | 2020-07-12 15:08 | NUR ---
PHONE REPORT GIVEN TO SULEMA LIRIANO.
[2020-07-12] MEDS ORDERED: BUPR150T73 PO (15:12)
[2020-07-16] MEDS ORDERED: NICO-486 TD (15:15)
[2020-07-16] MEDS ORDERED: ARIP5TAB13 PO (15:15)
[2020-07-16] MEDS ORDERED: BUPR150T73 PO (15:15)
== END 2020-07-12 15:50 | disposition other institution (70) ==
LOC: ED 10:31
DX: R45.851 Suicidal ideations (principal); Z20.822 Contact with and (suspected) exposure to COVID-19; F15.129 Other stimulant abuse with intoxication, unspecified; F17.200 Nicotine dependence, unspecified, uncomplicated
CPT/HCPCS: 80307; 87426; 99284

== ENCOUNTER 2020-09-02 08:33 | Emergency (ER) | payer MEDICAID ==
[~2020-09-02] VITALS: Ht 172.7 cm; Wt 85.9 kg
[~2020-09-02 08:33] MED LIST changes: +ARIP5TAB13 PO; +BUPR150T73 PO; -CYCL-259 PO; +CYCL10TA2 PO; +METH-639 PO; -METH500T7 PO; +NICO-486 TD; +SERT-331 PO; -SERT25TA3 PO
--- NOTE | 2020-09-02 09:05 | NUR ---
Pt here for intermittant fevers. Afebrile in triage. Pt presents with tachycardia, otherwise stable and without complaint. Pt states that he is currently a resident in transitional housing, staff requiring Covid test d/t SX.
--- NOTE | 2020-09-02 09:12 | NUR ---
Pt provided with PO fluids per ERP requests.
[2020-09-02] MEDS ORDERED: ACETAMINOPHEN 500 MG TABLET PO ONE (09:30)
[2020-09-02] MEDS ORDERED: ACETAMINOPHEN 500 MG TABLET ONE (09:30)
[2020-09-02 09:35] VITALS: BP 155/113
--- NOTE | 2020-09-02 09:35 | NUR ---
Provided with Tylenol prior to DC
== END 2020-09-02 09:37 | disposition home or self-care (01) ==
LOC: ED 08:57
DX: B34.9 Viral infection, unspecified (principal); Z20.822 Contact with and (suspected) exposure to COVID-19; R00.0 Tachycardia, unspecified; R94.31 Abnormal electrocardiogram [ECG] [EKG]
CPT/HCPCS: 71045; 93005; 99285; U0003